=== PATIENT | female | born 1995 | race Caucasian/White ===

== ENCOUNTER → 2020-02-18 | Emergency (ER) | payer BC ==
[~2020-02-18] VITALS: Ht 172.7 cm; Wt 74.4 kg
--- NOTE | 2020-02-18 14:11 | NUR ---
RECEIVED PATIENT FROM HOME WITH CC OF palpitation, "feeling faint and weak"worst when standing up since yesterday , ATTACHED TO MONITOR , SR 80-90 ON BEDSIDE MONITOR ,DENIES SOB AND CHEST PAIN AT THIS TIME , VSS , AFEBRILE , SKIN WARM TO TOUCH , MD AT BEDSIDE , WILL CONTINUE TO MONITOR .
[2020-02-18 14:40] LABS: BASOPHILS % (AUTO) 0.5 % (0.0-2.0); EOSINOPHILS % (AUTO) 0.6 % (0.0-6.0); HEMATOCRIT 41 % (33-45); HEMOGLOBIN 13.8 g/dL (11.5-14.8); LYMPHOCYTES # (AUTO) 2.6 /CMM (0.8-4.8); LYMPHOCYTES % (AUTO) 32.6 % (20.0-44.0); MEAN CORPUSCULAR HGB CONC 34 g/dl (31.0-36.0); MEAN CORPUSCULAR VOLUME 85 fL (82-100); MONOCYTES # (AUTO) 0.4 /CMM (0.1-1.30); MONOCYTES % (AUTO) 5.3 % (2.0-12.0); NEUTROPHILS # (AUTO) 4.8 /CMM (1.8-8.9); PLATELET COUNT (AUTO) 274 /CMM (150-450); RED BLOOD CELL COUNT(AUTO) 4.79 MIL/uL (4.0-5.2)
[2020-02-18 15:02] LABS: CALCIUM, SERUM 9.1 mg/dL (8.5-10.1); CARBON DIOXIDE 27 mmol/L (21-32); CHLORIDE 104 mmol/L (98-107); CREATININE 0.8 mg/dL (0.6-1.3); GLUCOSE 82 mg/dL (74-106); POTASSIUM 3.7 mmol/L (3.5-5.1); SODIUM SERUM 139 mmol/L (136-145); UREA NITROGEN, BLOOD 16 mg/dL (7-18)
--- NOTE | 2020-02-18 15:42 | NUR ---
DISCHARGED PT STABLE , NO ACUTE EVENTS , VS STABLE , DENIES SOB AND CHEST PAIN AT THIS TIME , EXPLANED DISCHARGE INSERTIONS PT VERBALIZED UNDERSTANDING , PT AMBULATORY .
[2020-02-18 15:43] VITALS: BP 122/78
== END | disposition home or self-care (01) ==
LOC: ER 13:32
DX: R00.2 Palpitations (principal); R42 Dizziness and giddiness; R53.1 Weakness
CPT/HCPCS: 36415; 71045-TC; 80048-TC; 84484-TC; 84703-TC; 85025-TC